=== PATIENT | male | born 1995 | race Two or more races ===

== ENCOUNTER 2017-10-19 01:09 | Observation (INO) | payer OTHER, SELFPAY ==
[2017-10-19] VITALS (16 sets, daily range): BP systolic 110–153; BP diastolic 55–99; PULSE 95–116; RESP 16–24; TEMP 36.5–38.7; O2SAT 94–99; BMI 28.7
[2017-10-19 01:42] LABS: Absolute Lymphocyte Count 2.83 X10^3/ul (0.83-4.51); Absolute Neutrophil Count 9.8 X10^3/uL (2.0-7.7); Basophil# 0.01 X10^3/uL; Basophil% 0.1 % (0-1); Eosinophils% 2.2 % (0-5); Hematocrit 44.7 % (40-54); Hemoglobin 15.8 g/dl (13.0-16.5); Lymphocyte # 2.83 X10^3/ul (4.0); Mean Corp Hgb Conc 35.3 g/gl (32-36); Mean Corpuscular Hgb 30.4 pg (27.0-32.0); Mean Platelet Vol. 9.5 fl (6.2-12.0); Monocyte# 0.48 X10^3/uL; Monocyte% 3.6 % (0-10); Neutrophil # 9.83 X10^3/uL (2.7-7.7); Neutrophil % 72.9 % (47-70); POSITIVE COUNT NO; POSITIVE DIFFERENTIAL NO; POSITIVE MORPHOLOGY NO; Platelet Count 177 K/mm3 (150-450); RBC Distribution Width CV 12.2 % (11.6-14.6); RBC Distribution Width SD 38.2 fl (35.1-43.9); White Blood Count 13.5 K/mm3 (4.4-11.0)
[2017-10-19 01:45] LABS: Anion Gap 8 (5-15); BUN 15 mg/dL (7-18); BUN/Creat Ratio 11.9 RATIO (10-20); Calcium,Total 8.7 mg/dL (8.5-10.1); Chloride 106 mmol/L (98-107); Creatinine, Serum 1.26 mg/dL (0.70-1.30); EST Glomerular Filtration Rate 76 mL/min (>60); Est Glom Filt Rate - Afr Amer 91 mL/min (>60); Estimated Creatinine Clearance 88.97 ml/min; Glucose 108 mg/dL (74-106); Potassium 3.5 mmol/L (3.5-5.1); Sodium Level 141 mmol/L (136-145)
--- NOTE | 2017-10-19 01:51 | CT_ITS ---
STUDY: CT ABDOMEN AND PELVIS WITH CONTRAST REASON FOR EXAM: Male, 21 years old. Right lower quadrant pain RADIATION DOSAGE (If Supplied By Facility): CTDIvol = ( 12.42 ) mGy, DLP = ( 631.91 ) mGycm TECHNIQUE: Transaxial images were obtained from the dome of the diaphragm to the symphysis pubis without oral contrast. 100ML ml of Isovue 300 contrast was administered. Sagittal and coronal images were reconstructed. Individualized dose optimization techniques were used for this CT. COMPARISON: None. FINDINGS: Lung bases demonstrate mild dependent atelectasis. The visualized portions of the heart are within normal limits. Normal liver. Normal gallbladder and extrahepatic biliary system. Normal spleen. Normal pancreas. Normal bilateral adrenal glands. Normal right kidney. Normal left kidney. Ureters are normal. Normal visualized stomach. Normal small intestine. Normal colon. There is mucosal thickening of the appendix which is fluid-filled. There is moderate periappendiceal inflammation with associated adjacent free fluid. There is no free intraperitoneal air. Normal abdominal aorta. Normal inferior vena cava. Normal retroperitoneum. Normal urinary bladder. There is a small amount of free fluid tracking into the pelvis. Normal abdominal wall. Normal osseous structures. CT/Abdomen/Pelvis WITH Contrast IMPRESSION: 1. Acute appendicitis without evidence of perforation or abscess formation. 2. Minimal amount of free fluid in the lower right paracolic gutter and tracking into the pelvis. Electronically Signed: Sumit Pena MD at 4:10 EDT Tel , Service support ,
--- NOTE | 2017-10-19 01:52 | ED.VISSUMM ---
- ER Visit Summary Date of Service: 10/19/17 Chief Complaint: Right lower quadrant abdominal pain History of Present Illness: The patient is a 21 M with no medical history who presents for sharp right lower quadrant abdominal pain. Onset was a few hours ago. States he felt well prior to the development of the right lower quadrant pain. Patient has vomited once. Patient denies fever, chest pain, shortness of breath, diarrhea or constipation, urinary symptoms, back pain. No history of abdominal surgeries. Physical Examination: Vital signs: afebrile, hemodynamically stable, no hypoxia on room air General: well nourished, well developed, in no distress appears uncomfortable and laying very still Skin: warm, dry, no rash, no pallor HEENT: normocephalic and atraumatic; PERRL, EOMI, moist mucous membranes Cardiovascular: regular rate and rhythm without murmurs, no peripheral edema, 2+ pulses all distal extremities Respiratory: No increased work of breathing, lungs are clear to auscultation bilaterally, no rales, rhonchi or wheezing Abdominal: Abdomen is soft, tender with rebound tenderness in the right lower quadrant, palpation to the remainder of the abdomen causes referred pain in the right lower quadrant, normoactive bowel sounds, no guarding, no masses MSK: Moves all extremities, no deformities, normal strength Neuro: Awake and alert, oriented ?4. No facial droop, sensation and motor function intact and symmetric Test Results: Abnormal Lab Results 10/19/17 10/19/17 10/19/17 01:17 01:17 02:03 WBC 13.5 H RBC 5.20 Hgb 15.8 Hct 44.7 MCV 86.0 MCH 30.4 MCHC 35.3 RDW 12.2 RDW Differential 38.2 Plt Count 177 MPV 9.5 Immature Gran % (Auto) 0.200 Neut % (Auto) 72.9 H Lymph % (Auto) 21.0 [place] % (Auto) 3.6 Eos % (Auto) 2.2 Baso % (Auto) 0.1 Absolute Neuts (auto) 9.8 H Absolute Lymphs (auto) 2.83 Total Counted Not Reportable Sodium 141 Potassium 3.5 Chloride 106 Carbon Dioxide 27.0 Anion Gap 8 BUN 15 Creatinine 1.26 Estim Creat Clear Calc 88.97 Est GFR (MDRD) Af Amer 91 Est GFR (MDRD) Non-Af 76 BUN/Creatinine Ratio 11.9 Glucose 108 H Calcium 8.7 Urine Color Yellow Urine Clarity Clear Urine pH 6.0 Ur Specific [place] 1.020 Urine Protein Negative Urine Glucose (UA) Normal Urine Ketones Negative Urine Occult Blood Negative Urine Nitrite Negative Urine Bilirubin Negative Urine Urobilinogen Normal Ur Leukocyte Esterase Negative Urine RBC 0 SEEN Urine WBC 0-5 SEEN Ur Squamous Epith Cells 0 SEEN Urine Bacteria RARE Urine Mucus 2+ Clinical Impression(s) from Imaging Studies Abdomen/Pelvis CT 10/19/17 01:51 IMPRESSION: 1. Acute appendicitis without evidence of perforation or abscess formation. 2. Minimal amount of free fluid in the lower right paracolic gutter and tracking into the pelvis. Emergency Department Course and Treatment: Patient's presentation is concerning for acute abdominal pathology, including appendicitis. Labs remarkable for leukocytosis of 13.5. CT of the abdomen and pelvis performed showing acute appendicitis without evidence of perforation or abscess. His pain was managed with morphine and Zofran, and patient received IV fluids. He was started on Zosyn for acute appendicitis. He was discussed with Dr. Fry and will be taken directly from the emergency department to surgery for appendectomy. Plan discussed with patient who is in agreement. Treatment Plan: [] Disposition: admission/to OR Impression: Acute appendicitis This note was generated with [employer] Windows dictation software. It may contain incorrect words, spelling, and punctuation that were not noted in review of the chart prior to signing ED Disposition - Plan for ED Patient: Chief Complaint: Abd Pain Referrals: NOT,DEFINED [NON-STAFF] -
[2017-10-19] MEDS: 0.9% Normal Saline 1,000 ML 1000 ML IV (02:05)
[2017-10-19] MEDS: Ondansetron 4 MG/2 ML Vial IV (02:05)
[2017-10-19] MEDS: Morphine 4 MG/ML Syringe IV ×2 (02:06→04:29)
[2017-10-19 02:09] LABS: Red Blood Cells-Urine 0 SEEN /hpf (0-5); Squamous Epithelial Cells - UA 0 SEEN /hpf (0-5)
[2017-10-19 02:10] LABS: Color, Urine Yellow (Yellow); Glucose, Dipstick Normal (Normal); Ketone-Dipstick Negative (Negative); Leukocyte Esterase-Dipstick Negative /ul (Negative); Nitrite-Dipstick Negative (Negative); Occult Blood-Urine Negative /ul (Negative); Protein-Dipstick Negative (Negative); Urine Bilirubin Dipstick Negative (Negative); Urine Clarity Clear (Clear); Urine Urobilinogen Normal (Normal)
[2017-10-19 02:19] LABS: Bacteria RARE /hpf (None Seen); Mucous, Urine 2+ /hpf (<or=2+); White Blood Cells 0-5 SEEN /hpf (0-5)
[2017-10-19] MEDS: 0.9% Normal Saline 1,000 ML 150 ML IV (04:30)
--- NOTE | 2017-10-19 04:46 | PCM.HP.STD ---
Problem List (1) Acute appendicitis Status: Acute Qualifiers: Acute appendicitis type: unspecified acute appendicitis type Qualified Code(s): K35.80 - Unspecified acute appendicitis History of Present Illness Date of Admission: 10/19/17 Chief Complaint: Acute appendicitis The patient is a 21 year old M reports that yesterday evening he began to have periumbilical pain which radiated down to the right lower quadrant. He does have nausea and vomiting. He denies fevers or chills. He does not have any other pain. He is not having other symptoms. Past Medical History Allergies No Known Allergies Allergy (Verified 10/19/17 01:16) Home Medications: Ambulatory Orders Medication Instructions Recorded NK [NK] 10/19/17 Surgical History: no surgical history Psychiatric History: No pertinent psych hx Lives: Alone Smoking Status: Never smoker Alcohol: None Drugs: None - *Family History Maternal History Items: - - None Review of Systems Constitutional: Denies: Anorexia, Fever HEENT: Denies: Difficulty Swallowing Cardiovascular: Denies: Chest Pain Respiratory: Denies: Cough, Shortness of Breath Gastrointestinal: Reports: Abdominal Pain - Right lower quadrant pain, Nausea, Vomiting Genitourinary: Denies: Dysuria Musculoskeletal: Denies: Joint Tenderness Skin: Denies: Rash Neurological: Denies: Balance problems Psychiatric: Denies: Anxiety, Depression Hematologic/ Lymphatic: Denies: Anemia VTE Information - Inpt Only VTE Present on Admission: No VTE Mechan Device Prophylaxis: SCD's Patient Problems: Active and Suspected Problems Acute appendicitis (Acute) - Physical Exam General: Alert, Oriented x3, Cooperative HEENT: Atraumatic, PERRLA Oral: Moist Mucosa Neck: Supple Lungs: Normal air movement Cardiovascular: Regular rate, Regular Rhythm Abdomen: Soft, Non-Distended, Tender - Tender right lower quadrant with no guarding or rebound. Extremities: No clubbing Musculoskeletal: No Tenderness to Palpation of Joints or Extremities Neurological: Cranial nerves II-XII grossly intact Psych/Mental Status: Normal Affect, Appropriate Vital Signs Temp Pulse Resp BP Pulse Ox 98.3 F 114 H 18 121/69 H 99 10/19/17 01:10 10/19/17 03:17 10/19/17 03:17 10/19/17 03:17 10/19/17 03:17 Oxygen Delivery Method Room Air Weight: 188 lb 11.451 oz Body Mass Index (BMI) 28.7 Laboratory Tests Past 24 Hrs 10/19/17 10/19/17 10/19/17 01:17 01:17 02:03 WBC 13.5 H RBC 5.20 Hgb 15.8 Hct 44.7 MCV 86.0 MCH 30.4 MCHC 35.3 RDW 12.2 RDW Differential 38.2 Plt Count 177 MPV 9.5 Immature Gran % (Auto) 0.200 Neut % (Auto) 72.9 H Lymph % (Auto) 21.0 [place] % (Auto) 3.6 Eos % (Auto) 2.2 Baso % (Auto) 0.1 Absolute Neuts (auto) 9.8 H Absolute Lymphs (auto) 2.83 Total Counted Not Reportable Sodium 141 Potassium 3.5 Chloride 106 Carbon Dioxide 27.0 Anion Gap 8 BUN 15 Creatinine 1.26 Estim Creat Clear Calc 88.97 Est GFR (MDRD) Af Amer 91 Est GFR (MDRD) Non-Af 76 BUN/Creatinine Ratio 11.9 Glucose 108 H Calcium 8.7 Urine Color Yellow Urine Clarity Clear Urine pH 6.0 Ur Specific [place] 1.020 Urine Protein Negative Urine Glucose (UA) Normal Urine Ketones Negative Urine Occult Blood Negative Urine Nitrite Negative Urine Bilirubin Negative Urine Urobilinogen Normal Ur Leukocyte Esterase Negative Urine RBC 0 SEEN Urine WBC 0-5 SEEN Ur Squamous Epith Cells 0 SEEN Urine Bacteria RARE Urine Mucus 2+ Clinical Impression(s) from Imaging Studies Abdomen/Pelvis CT 10/19/17 01:51 IMPRESSION: 1. Acute appendicitis without evidence of perforation or abscess formation. 2. Minimal amount of free fluid in the lower right paracolic gutter and tracking into the pelvis. Electronically Signed: Sumit Pena MD at 4:10 EDT Tel , Service support , Assessment/Plan Active and Suspected Problems Acute appendicitis (Acute) 21-year-old male with acute appendicitis 1. The patient has acute appendicitis on CT as well as an elevated white count. His story is consistent with appendicitis as well. I discussed laparoscopic appendectomy with the patient in detail. I discussed the risks including but not limited to bleeding, infection, damage to other organs such as the bowels. The patient understands risks and is willing to proceed with surgery. I will give him a dose of antibiotics in the emergency room and then admitted postoperatively. Glenroy Fry MD Pager: [facility] [address] [place] [address] Office:
[2017-10-19] MEDS: Piperacil/Tazobactam 3.375 GM/50 ML ML IV ×2 (04:50→12:42)
--- NOTE | 2017-10-19 04:51 | HP.PCM_ITS ---
Problem List (1) Acute appendicitis Status: Acute Qualifiers: Acute appendicitis type: unspecified acute appendicitis type Qualified Code (s): K35.80 - Unspecified acute appendicitis History of Present Illness Date of Admission: 10/19/17 Chief Complaint: Acute appendicitis The patient is a 21 year old M reports that yesterday evening he began to have periumbilical pain which radiated down to the right lower quadrant. He does have nausea and vomiting. He denies fevers or chills. He does not have any other pain. He is not having other symptoms. Past Medical History Allergies No Known Allergies Allergy (Verified 10/19/17 01:16) Home Medications: Ambulatory Orders Medication Instructions Recorded NK [NK] 10/19/17 Surgical History: no surgical history Psychiatric History: No pertinent psych hx Lives: Alone Smoking Status: Never smoker Alcohol: None Drugs: None - *Family History Maternal History Items: - - None Review of Systems Constitutional: Denies: Anorexia, Fever HEENT: Denies: Difficulty Swallowing Cardiovascular: Denies: Chest Pain Respiratory: Denies: Cough, Shortness of Breath Gastrointestinal: Reports: Abdominal Pain - Right lower quadrant pain, Nausea, Vomiting Genitourinary: Denies: Dysuria Musculoskeletal: Denies: Joint Tenderness Skin: Denies: Rash Neurological: Denies: Balance problems Psychiatric: Denies: Anxiety, Depression Hematologic/ Lymphatic: Denies: Anemia VTE Information - Inpt Only VTE Present on Admission: No VTE Mechan Device Prophylaxis: SCD's Patient Problems: Active and Suspected Problems Acute appendicitis (Acute) - Physical Exam General: Alert, Oriented x3, Cooperative HEENT: Atraumatic, PERRLA Oral: Moist Mucosa Neck: Supple Lungs: Normal air movement Cardiovascular: Regular rate, Regular Rhythm Abdomen: Soft, Non-Distended, Tender - Tender right lower quadrant with no guarding or rebound. Extremities: No clubbing Musculoskeletal: No Tenderness to Palpation of Joints or Extremities Neurological: Cranial nerves II-XII grossly intact Psych/Mental Status: Normal Affect, Appropriate Vital Signs Temp Pulse Resp BP Pulse Ox 98.3 F 114 H 18 121/69 H 99 10/19/17 01:10 10/19/17 03:17 10/19/17 03:17 10/19/17 03:17 10/19/17 03:17 Oxygen Delivery Method Room Air Weight: 188 lb 11.451 oz Body Mass Index (BMI) 28.7 Laboratory Tests Past 24 Hrs 10/19/17 10/19/17 10/19/17 01:17 01:17 02:03 WBC 13.5 H RBC 5.20 Hgb 15.8 Hct 44.7 MCV 86.0 MCH 30.4 MCHC 35.3 RDW 12.2 RDW Differential 38.2 Plt Count 177 MPV 9.5 Immature Gran % (Auto) 0.200 Neut % (Auto) 72.9 H Lymph % (Auto) 21.0 [place] % (Auto) 3.6 Eos % (Auto) 2.2 Baso % (Auto) 0.1 Absolute Neuts (auto) 9.8 H Absolute Lymphs (auto) 2.83 Total Counted Not Reportable Sodium 141 Potassium 3.5 Chloride 106 Carbon Dioxide 27.0 Anion Gap 8 BUN 15 Creatinine 1.26 Estim Creat Clear Calc 88.97 Est GFR (MDRD) Af Amer 91 Est GFR (MDRD) Non-Af 76 BUN/Creatinine Ratio 11.9 Glucose 108 H Calcium 8.7 Urine Color Yellow Urine Clarity Clear Urine pH 6.0 Ur Specific [place] 1.020 Urine Protein Negative Urine Glucose (UA) Normal Urine Ketones Negative Urine Occult Blood Negative Urine Nitrite Negative Urine Bilirubin Negative Urine Urobilinogen Normal Ur Leukocyte Esterase Negative Urine RBC 0 SEEN Urine WBC 0-5 SEEN Ur Squamous Epith Cells 0 SEEN Urine Bacteria RARE Urine Mucus 2+ Clinical Impression(s) from Imaging Studies Abdomen/Pelvis CT 10/19/17 01:51 IMPRESSION: 1. Acute appendicitis without evidence of perforation or abscess formation. 2. Minimal amount of free fluid in the lower right paracolic gutter and tracking into the pelvis. Electronically Signed: Sumit Pena MD at 4:10 EDT Tel , Service support , Assessment/Plan Active and Suspected Problems Acute appendicitis (Acute) 21-year-old male with acute appendicitis 1. The patient has acute appendicitis on CT as well as an elevated white count. His story is consistent with appendicitis as well. I discussed laparoscopic appendectomy with the patient in detail. I discussed the risks including but not limited to bleeding, infection, damage to other organs such as the bowels. The patient understands risks and is willing to proceed with surgery. I will give him a dose of antibiotics in the emergency room and then admitted postoperatively. Glenroy Fry MD Pager: [facility] [address], [address] [place] [address] Office:
--- NOTE | 2017-10-19 06:00 | APP_PTH ---
PATIENT: ROSLYN MARES LOC: MS3 U#:[id number] AGE/SX: 21/M ROOM: [facility] [place] RE10/19/[address]: Dr. Glenroy Fry MD : 1995 BED: 1 DIS: 10/20/2017 SPEC #: [id number] RECD: 10/19/17 09:18 STATUS: THONY NITHIN #: [id number] MARCELLO: 10/19/17 06:[address]: Glenroy Fry DEPT: SURGICAL PATHOLOGY RECD BY: Sumit Schofield ENTERED: 10/19/17 09:19 SP TYPE: APPENDIX OTHR DR: No Primary Care Phys Tissues: Appendix, NOS Procedures: Surgery Specimen Level III HEADER OPERATION: Laparoscopic appendectomy PRE-OP DIAGNOSIS: Acute appendicitis TISSUE SUBMITTED: Appendix MICROSCOPIC DIAGNOSIS Appendix, appendectomy: Acute appendicitis. Acute serositis. AM:derick 10/20/17 MICROSCOPIC DESCRIPTION Slides are reviewed. GROSS DESCRIPTION Received is one container labeled with the patient's name and designated appendix. The specimen consists of an appendix measuring 4.5 cm in length and 0.7 cm in average diameter. The attached periappendiceal adipose tissue measures up to 1.7 cm in width. The serosa is covered with chatterjee, purulent exudate. No obvious perforation is identified. The lumen is pin-point. No fecalith is identified. [employer] Casting [employer] Operator sections are submitted in one cassette. / SJ:derick 10/19/17 TC:2 CPT: 33651
[2017-10-19] MEDS: Bupiv/Epi 0.5% Mpf 30 ML Vial (06:40)
--- NOTE | 2017-10-19 07:58 | OP.PCM_ITS ---
Problem List (1) Acute appendicitis Status: Acute Qualifiers: Acute appendicitis type: unspecified acute appendicitis type Qualified Code (s): K35.80 - Unspecified acute appendicitis Report of Operation Date of Procedure: 10/19/17 Pre-Operative Diagnosis: Acute appendicitis Post-Operative Diagnosis: Same Surgery/Procedure Performed:: Laparoscopic appendectomy Description of Surgical Findings:: The patient had inflamed appendix with purulent fluid in the pelvis. Specimen's removed: Appendix Description of Procedure: The patient was brought into the operating room and general anesthesia was induced. The left arm was tucked and the abdomen was prepped and draped in usual sterile fashion. A small midline incision was made superior to the umbilicus and deepened to the level of the fascia. The fascia was elevated and incised. The peritoneum was also elevated and incised. A finger sweep was performed and a balloon trocar was placed into the abdomen and inflated. The abdomen was insufflated to 15 mmHg and the camera was inserted and the abdomen was inspected for any injuries upon entering the abdomen. There were none. The patient was placed in Trendelenburg position and a 5 mm ports placed in the left lower quadrant and suprapubic areas under direct visualization. Next using atraumatic bowel graspers the appendix was identified. The appendix was grasped and elevated and a harmonic scalpel was used to take down the mesoappendix. A stapler was used to come across the base of the appendix. The appendix was then placed in Endo Catch bag and removed through the umbilical incision. The staple line was inspected and found to be hemostatic and intact. There was purulent fluid in the pelvis. This was suctioned and irrigated. The 2 5 mm ports are removed under direct visualization. The balloon trocar was deflated and removed and all the air was removed from the abdomen. The umbilical incision fascia was closed with an 0 Vicryl [id number] suture. The incisions were then irrigated with saline and dried. Local anesthetic was injected into the incision sites. The skin incisions were then closed with interrupted 4-0 Monocryl suture and Steri-Strips. Bandages were applied and the patient was awoken and taken to PACU in stable condition. Patient tolerated the procedure well. - Admit VTE Documentation VTE Mechan Device Prophylaxis: SCD's
[2017-10-19] MEDS: Morphine 2 MG/ML Syringe IV (08:32)
[2017-10-19] MEDS: 0.9% Normal Saline 1,000 ML 100 ML IV ×2 (12:43→23:13)
[2017-10-19] MEDS: HYDROcodone Bitartrate/Apap 5/325 Tablet PO (13:00)
[2017-10-19] MEDS: Acetaminophen 325 MG Tablet 650 MG PO (20:26)
[2017-10-20 02:30] VITALS: BP 130/81; PULSE 97; RESP 16; TEMP 38.1; O2SAT 99
[2017-10-20] MEDS: HYDROcodone Bitartrate/Apap 5/325 Tablet PO (06:55)
[2017-10-20 08:00] VITALS: BP 130/73; PULSE 104; RESP 16; TEMP 37.4; O2SAT 96
--- NOTE | 2017-10-20 08:34 | PCM.PN.SRG ---
Patient Problems: Active and Suspected Problems Acute appendicitis (Acute) Subjective: Patient is doing better this morning he started passing flatus. He has no nausea or vomiting. His abdominal pain is well controlled on p.o. meds. - Physical Exam General: Alert, Oriented x3, Cooperative HEENT: Atraumatic Lungs: Normal air movement Cardiovascular: Regular rate, Regular Rhythm Abdomen: Soft, Non-Distended, Tender - Appropriate tenderness to palpation., - - Incisions are clean dry and intact Musculoskeletal: No Muscle Wasting Neurological: Cranial nerves II-XII grossly intact Psych/Mental Status: Normal Affect Vital Signs Temp Pulse Resp BP Pulse Ox 99.4 F H 104 H 16 130/73 H 96 10/20/17 08:00 10/20/17 08:00 10/20/17 08:00 10/20/17 08:00 10/20/17 08:00 Oxygen Delivery Method Room Air Weight: 188 lb 11.451 oz Body Mass Index (BMI) 28.7 Intake and Output for Last 24 Hours 10/18/17 10/19/17 10/20/17 23:59 23:59 23:59 Intake Total 1736 / 1736 1877 / 1877 Balance 1736 / 1736 1877 / 1877 Clinical Impression(s) from Imaging Studies Abdomen/Pelvis CT 10/19/17 01:51 IMPRESSION: 1. Acute appendicitis without evidence of perforation or abscess formation. 2. Minimal amount of free fluid in the lower right paracolic gutter and tracking into the pelvis. Electronically Signed: Sumit Pena MD at 4:10 EDT Tel , Service support , Medical Necessity - Tobacco Use Smoking Status: Never smoker Assessment/Plan Active and Suspected Problems Acute appendicitis (Acute) 21-year-old male with acute appendicitis status post laparoscopic appendectomy, POD 1 1. Patient is doing well this morning. His pain is well controlled with oral medication. He did not take much oral intake yesterday but now he is feeling more hungry and passing gas this morning. 2. I did inform her that there is a possibility of forming an intra-abdominal abscess in the future and that if he experiences any worsening of pain in the coming week or nausea or vomiting that he is to call me immediately. Is to follow-up with me in 2 weeks. Glenroy Fry MD Pager: [facility] [address], [facility] [address] [place] [address] Office:
--- NOTE | 2017-10-20 08:36 | PCM.DC.APPY ---
Discharge Diet: Light diet - advance as tolerated Discharge Activity: May Not Drive - for 3-5 days or while taking narcotic pain meds. May shower in (days): 1 Lifting Restrictions: 20 lbs for 2 weeks Call your doctor if your incision/area has: Continuous Slow Oozing, Sudden Increased Bleeding, Increased Pain/ Swelling, Increased Redness, Foul Smelling Discharge Call your doctor if you observe: Fever of 101 or Higher Suture Line Care: Avoid Pulling/Pushing, Avoid Pinching/Bending Additional Dressing/Incision Instructions:: Keep dressing clean and dry. Change or remove dressing in 1 day. Leave steri strips for 1 week. May protect with a gauze bandaid. Medications to take at Discharge Hydrocodone Bitart/Apap 5-325 [[place] 5/325] 1 - 2 tablet PO Q4H PRN PRN 7 Days #30 tablet 10/20/17 Allergies/Adverse Reactions: Allergies No Known Allergies Allergy (Verified 10/19/17 01:16) The following prescriptions were given: Hydrocodone Bitart/Apap 5-325 [[place] 5/325] 1 - 2 tablet PO Q4H PRN PRN 7 Days #30 tablet PRN Reason: Severe Pain (6-04/13) Primary Care Physician: NOT,DEFINED [NON-STAFF] - Please Follow Up With: Glenroy Fry MD When: Please call to schedule 2 week follow up appointment. [phone]
--- NOTE | 2017-10-20 08:39 | DS.PCM_ITS ---
Discharge Date and Diagnosis - Problem List Patient Problems: Active and Suspected Problems Acute appendicitis (Acute) Date of Admission: 10/19/17 Date of Discharge: 10/20/17 - Primary Discharge Diagnosis Active and Suspected Problems Acute appendicitis (Acute) Hospital Course and Treatment Imaging Results: Clinical Impression(s) from Imaging Studies Abdomen/Pelvis CT 10/19/17 01:51 IMPRESSION: 1. Acute appendicitis without evidence of perforation or abscess formation. 2. Minimal amount of free fluid in the lower right paracolic gutter and tracking into the pelvis. Electronically Signed: Sumit Pena MD at 4:10 EDT Tel , Service support , Operations: appendectomy Procedures: None Summary of Care Provided: The patient is a 21 year old M who presented with right lower quadrant pain. He was taken immediately for a laparoscopic appendectomy. The patient was noted to have purulent appendicitis and surgery went well with no complications. Patient was moved to the floor postoperatively. The following morning he was tolerating p.o. and passing flatus. His abdominal pain was well- controlled with oral medication. Discharge Diet: Light diet - advance as tolerated Discharge Activity: May Not Drive - for 3-5 days or while taking narcotic pain meds. May shower in (days): 1 Call your doctor if your incision/area has: Continuous Slow Oozing, Sudden Increased Bleeding, Increased Pain/ Swelling, Increased Redness, Foul Smelling Discharge Call your doctor if you observe: Fever of 101 or Higher Suture Line Care: Avoid Pulling/Pushing, Avoid Pinching/Bending Additional Dressing/Incision Instructions:: Keep dressing clean and dry. Change or remove dressing in 1 day. Leave steri strips for 1 week. May protect with a gauze bandaid. Home Medications: Medications to take at Discharge Hydrocodone Bitart/Apap 5-325 [[place] 5/325] 1 - 2 tablet PO Q4H PRN PRN 7 Days # 30 tablet 10/20/17 Following Prescrptions Were Given to Patient: Hydrocodone Bitart/Apap 5-325 [[place] 5/325] 1 - 2 tablet PO Q4H PRN PRN 7 Days # 30 tablet PRN Reason: Severe Pain (-04/13) Primary Care Physician: NOT,DEFINED [NON-STAFF] - Please Follow Up With: Glenroy Fry MD When: Please call to schedule 2 week follow up appointment. [phone] Medical Necessity - Tobacco Use Smoking Status: Never smoker Meaningful Use Info Meaningful Use Diagnoses (Choose all that apply): None applicable
[2017-10-20 13:00] VITALS: BP 138/83; PULSE 89; RESP 16; TEMP 37; O2SAT 99
== END 2017-10-20 13:12 | disposition home or self-care (01) ==
LOC: ED 03:16 → SDC 04:52 → AC 04:53 → MS3 07:22
PROVIDERS: Admitting Provider Surgery; Emergency Provider Emergency Medicine; Visit Provider Surgery
PROC: 0DTJ4ZZ Resection of Appendix, Percutaneous Endoscopic Approach (ICD-10-PCS; CPT 44970; principal; 2017-10-19 06:00)
DX: K35.80 Unspecified acute appendicitis (principal)
CPT/HCPCS: 44970; 74177; 80048; 81001; 85025; 88304; 96361; 96365; 96366; 96375; 96376; 99218; 99282; J7030; J7120; Q9967; A4216; C1760; G0378; J2405